=== PATIENT | female | born 1945 | race American Indian/Alaskan Native ===

== ENCOUNTER 2020-08-08 10:35 | Outpatient (CLI) | payer MEDICARE ==
--- NOTE | 2020-08-09 14:18 | Mammography Report ---
DIGITAL SCREENING MAMMOGRAM WITH CAD, 08/08/2020 CLINICAL INFORMATION / INDICATION: Routine screening mammography. TECHNIQUE: Digital bilateral 2D mammography was obtained in the craniocaudal and mediolateral obliqu e projections. This examination was interpreted with the benefit of Computer-Aided Detection analysis . COMPARISON: 08/03/2019, 07/27/2018 FINDINGS: Breast Density: The breasts are heterogeneously dense, which may obscure small masses. No dominant mass, suspicious calcifications, or architectural distortion in the right breast. Benign- appearing generalized right breast calcifications are unchanged. Postoperative changes are again seen in the left breast with increase in number of grouped indetermin ate calcifications located along the middle/posterior depth of the lower inner right breast. No other significant abnormality of the left breast. IMPRESSION: Increase in number of grouped calcifications in the left breast as above. A diagnostic le ft mammogram with magnification views is recommended. Follow up recommendation: Special View: Mag BI-RADS Category 0: Incomplete. Needs additional imaging evaluation and/or prior mammograms for erlin rison. A "normal" or negative report should not discourage follow up or biopsy of a clinically significant f inding. A written summary of these findings will be mailed to the patient. The patient will be entered into a mammography reporting system which will generate a reminder letter for the patient's next appointmen t at the appropriate interval. The [employer] recommends yearly mammograms starting at age 40 and continuing as l mitzi as a woman is in good health. Breast MRI is recommended for women with an approximate 20-25% or greater lifetime risk of breast cancer, including women with a strong family history of breast or ova tavia cancer or who have been treated for Hodgkin's disease. Signer Name: Álvaro Tom MD Signed: 08/09/2020 2:14 PM Workstation Name: [id number]
== END 2020-08-08 10:36 | disposition home or self-care (01) ==
LOC: SPVWC 10:35
PROVIDERS: ATTEND Surgery
DX: Z12.31 Encounter for screening mammogram for malignant neoplasm of breast (principal)
CPT/HCPCS: 77067

== ENCOUNTER 2020-08-23 11:01 | Outpatient (CLI) | payer MEDICARE ==
--- NOTE | 2020-08-23 12:24 | Mammography Report ---
LEFT DIAGNOSTIC MAMMOGRAM INDICATION: Evaluate callus cases noted previously in the left breast on recent screening mammogram. COMPARISON: 08/08/2020, 08/03/2019, 07/27/2018, 07/25/2017. FINDINGS: Magnification views focused in the left central breast were performed to evaluate the site of previously noted calcifications seen in this region on the recent screening mammogram. The current images show a loose grouping of primarily round calcifications in this region. These can be seen patric ing back to 2018 exam and there appears to be little change. Direct comparison is difficult due to th e lack of prior magnification views. However, the morphology and the relative stability would suggest a benign etiology. IMPRESSION: Left breast calcifications are probably benign. A six-month follow-up diagnostic left breast mammogra m is recommended with magnification views. BI-RADS Category 3: Probably Benign. Signer Name: Ricardo Townsend MD Signed: 08/23/2020 12:20 PM Workstation Name: [id number]
== END 2020-08-23 11:02 | disposition home or self-care (01) ==
LOC: SPVWC 11:01
PROVIDERS: ATTEND Surgery
DX: R92.1 Mammographic calcification found on diagnostic imaging of breast (principal)

== ENCOUNTER 2021-02-20 10:31 | Outpatient (CLI) | payer MEDICARE ==
--- NOTE | 2021-02-20 12:10 | Mammography Report ---
LEFT DIAGNOSTIC MAMMOGRAM INDICATION: Follow-up evaluation of calcifications noted previously in the left breast. COMPARISON: 08/23/2020, 08/08/2020, 08/03/2019, 07/27/2018, 07/25/2017. FINDINGS: Magnification views focused in the left lower inner central breast were performed to evalua te a grouping of previously noted calcifications. The current images show a grouping of calcification s spanning up to 1.7 cm. These are primarily punctate and round. There is no interval detrimental julia nge and no new suspicious finding is identified. These calcifications can be seen dating back to 2018 exam and when accounting for differences in technique, there appears to be very little change. Long- term relative stability would suggest a benign etiology. IMPRESSION: No significant change in probably benign left lower inner central breast calcifications. The patient will be due for annual bilateral mammogram in July 2021. Repeat magnification views are recommende d at that time. BI-RADS Category 3: Probably Benign. Signer Name: Ricardo Townsend MD Signed: 02/20/2021 12:05 PM Workstation Name: [id number]
== END 2021-02-20 10:32 | disposition home or self-care (01) ==
LOC: SPVWC 10:31
PROVIDERS: ATTEND Surgery
DX: R92.1 Mammographic calcification found on diagnostic imaging of breast (principal)

== ENCOUNTER 2021-10-03 09:57 | Outpatient (CLI) | payer MEDICARE ==
--- NOTE | 2021-10-04 15:31 | Mammography Report ---
DIGITAL SCREENING MAMMOGRAM WITH CAD, 10/03/2021 CLINICAL INFORMATION / INDICATION: Routine screening mammography. SCREENING MAMMO TECHNIQUE: Digital bilateral 2D mammography was obtained in the craniocaudal and mediolateral obliqu e projections. This examination was interpreted with the benefit of Computer-Aided Detection analysis . COMPARISON: 08/08/2020 and 08/03/2019 FINDINGS: Breast Density: The breasts are heterogeneously dense, which may obscure small masses. No dominant mass, suspicious calcifications, or architectural distortion in either breast. Postoperative change again noted in the left breast. Stable bilateral calcifications. Largely unchang ed nodular densities in the breasts, commonly fibroglandular or fibrocystic change. IMPRESSION: No mammographic evidence of malignancy. Follow up recommendation: Routine yearly BI-RADS Category 2: BENIGN. A "normal" or negative report should not discourage follow up or biopsy of a clinically significant f inding. A written summary of these findings will be mailed to the patient. The patient will be entered into a mammography reporting system which will generate a reminder letter for the patient's next appointmen t at the appropriate interval. The [employer] recommends yearly mammograms starting at age 40 and continuing as l mitzi as a woman is in good health. Breast MRI is recommended for women with an approximate 20-25% or greater lifetime risk of breast cancer, including women with a strong family history of breast or ova tavia cancer or who have been treated for Hodgkin's disease. Signer Name: Ananth Moore MD Signed: 10/04/2021 3:27 PM Workstation Name: [id number]
== END 2021-10-03 09:58 | disposition home or self-care (01) ==
LOC: SPVWC 09:57
PROVIDERS: ATTEND Surgery
DX: Z12.31 Encounter for screening mammogram for malignant neoplasm of breast (principal); N64.89 Other specified disorders of breast
CPT/HCPCS: 77067